=== PATIENT | male | born 1955 | race Caucasian/White ===

== ENCOUNTER 2018-03-06 10:02 | Day surgery (SDC) | payer BC ==
[~2018-03-06 10:02] MED LIST: PROPOFOL 200 MG/20 ML VIAL As Ordered
[2018-03-06] MEDS: NS 1,000 ML IV (10:46)
== END 2018-03-06 12:34 | disposition home or self-care (01) ==
LOC: M OPP 10:02
DX: Z12.11 Encounter for screening for malignant neoplasm of colon (principal); K64.0 First degree hemorrhoids; E78.5 Hyperlipidemia, unspecified; E03.9 Hypothyroidism, unspecified; K21.9 Gastro-esophageal reflux disease without esophagitis; R06.83 Snoring; Z85.46 Personal history of malignant neoplasm of prostate; Z79.899 Other long term (current) drug therapy
CPT/HCPCS: G0121

== ENCOUNTER → 2022-09-24 | Outpatient (CLI) | payer BC ==
[~2022-09-24] MED LIST changes: +AMBI10TA PO; +CITA20TA7 PO; +LEVO25TA5 PO; -PROPOFOL 200 MG/20 ML VIAL As Ordered; +ROSU10TA6 PO; +ZANTTAB9 PO
[2022-09-24 10:26] LABS: ALKALINE PHOSPHATASE 81 U/L (46-116); ALT/SGPT 20 U/L (7.0-40); AST/SGOT 15 U/L (<34); BILIRUBIN,TOTAL 0.6 MG/DL (0.3-1.2); BLOOD UREA NITROGEN 21 MG/DL (9-23); CARBON DIOXIDE LEVEL 26 MMOL/L (20-31); CHLORIDE LEVEL 105 MMOL/L (98-107); CHOLESTEROL LEVEL 201 MG/DL (<200); CREATININE FOR GFR 0.99 MG/DL (0.70-1.30); GLOMERULAR FILTRATION RATE > 60.0 (>49); GLUCOSE, FASTING 101 MG/DL (74-106); LDL CHOLESTEROL 128.6 MG/DL (<100); NON-HDL-C 160 MG/DL; POTASSIUM SERUM 4.4 MMOL/L (3.5-5.1); SODIUM LEVEL 141 MMOL/L (136-145); TOTAL PROTEIN 6.7 G/DL (5.7-8.2); TRIGLYCERIDES LEVEL 157 MG/DL (<150)
[2022-09-24 10:28] LABS: THYROID STIMULATING HORMONE 3.156 uIU/ML (0.55-4.78)
== END ==
LOC: M WUC 08:03
PROVIDERS: ATTEND Internal Medicine
DX: E78.5 Hyperlipidemia, unspecified (principal); E03.9 Hypothyroidism, unspecified; R73.01 Impaired fasting glucose

== ENCOUNTER → 2025-06-13 | Outpatient (CLI) | payer MEDICARE ==
[~2025-06-13] MED LIST changes: -AMBI10TA PO; +OMEP-173 PO; -ROSU10TA6 PO; +ROSU10TA61 PO; +ZOLP-533 PO
== END ==
LOC: M EKG 06:30
PROVIDERS: ATTEND Internal Medicine
DX: Z01.818 Encounter for other preprocedural examination (principal)

== ENCOUNTER 2025-06-25 06:52 | Day surgery (SDC) | payer MEDICARE ==
[~2025-06-25] VITALS: Ht 180.3 cm; Wt 89.5 kg
[2025-06-25] MEDS: LR 1,000 ML IV SCH (07:15)
[2025-06-25 08:01] LABS: CALCIUM LEVEL 9.2 MG/DL (8.3-10.6); CARBON DIOXIDE LEVEL 29.0 MMOL/L (20-31); CHLORIDE LEVEL 106.0 MMOL/L (98-107); CREATININE FOR GFR 1.03 MG/DL (0.70-1.30); GLOMERULAR FILTRATION RATE 79.6 (>49); POTASSIUM SERUM 5.1 MMOL/L (3.5-5.1); SODIUM LEVEL 143.0 MMOL/L (136-145)
[2025-06-25] MEDS ORDERED: LIDOCAINE 2% 100 MG/5 ML SDV (FOR ANES.) As Ordered ONE (08:09)
[2025-06-25] MEDS ORDERED: ROCURONIUM BROMIDE 50MG/5ML VIAL As Ordered ONE (08:09)
[2025-06-25] MEDS ORDERED: MIDAZOLAM INJ 2 MG/2 ML VIAL As Ordered ONE (08:09)
[2025-06-25] MEDS: ceFAZolin SOD 2 GM IV ONCE IV ONE (08:40)
[2025-06-25] MEDS ORDERED: dexAMETHasone 4 MG/ML 1 ML VIAL As Ordered ONE (08:41)
[2025-06-25] MEDS ORDERED: ACETAMINOPHEN 1000MG/100ML IV BAG As Ordered ONE (09:03)
[2025-06-25] MEDS ORDERED: ONDANSETRON 4MG 2ML VIAL As Ordered ONE (09:27)
[2025-06-25] MEDS ORDERED: SUGAMMADEX SODIUM 500 MG/5 ML VIAL As Ordered ONE (09:27)
[2025-06-25] MEDS ORDERED: HYDROmorphone HCL 2 MG/ML 1 ML VIAL As Ordered ONE (09:44)
[2025-06-25] MEDS ORDERED: KETOROLAC 30 MG/ML 1 ML VIAL As Ordered ONE (09:50)
[2025-06-25] MEDS ORDERED: LR 1,000 ML IV SCH (10:10)
[2025-06-25] MEDS ORDERED: ONDANSETRON 4MG 2ML VIAL IV PRN (10:10)
[2025-06-25] MEDS ORDERED: HYDROMORPHONE HCL 0.5 MG/0.5 ML SYRINGE IV PRN (10:10)
[2025-06-25] MEDS ORDERED: traMADol 50 MG TAB PO PRN (10:45)
[2025-06-25] MEDS ORDERED: NS (Normal Saline) 0.9% 1,000 ML IV SCH (10:45)
[2025-06-25 11:46] VITALS: BP 121/72; TEMP 97.3; O2SAT 93
== END 2025-06-25 11:44 | disposition home or self-care (01) ==
LOC: M SDC 06:52
PROVIDERS: ATTEND Surgery
DX: K40.90 Unilateral inguinal hernia, without obstruction or gangrene, not specified as recurrent (principal); E78.00 Pure hypercholesterolemia, unspecified; Z79.899 Other long term (current) drug therapy; K21.9 Gastro-esophageal reflux disease without esophagitis; Z85.46 Personal history of malignant neoplasm of prostate; Z90.79 Acquired absence of other genital organ(s)
CPT/HCPCS: 36415; 49650; 80048; C1781; J0131; J0665; J0690; J1100; J1171; J1885; J2250; J2405; J3010